=== PATIENT | female | born 1980 | race Hispanic/Latino ===

== ENCOUNTER 2018-05-21 19:42 | Emergency (ER) | payer SELFPAY ==
[2018-05-21 20:33] LABS: Urine Blood TRACE (NEG); Urine Glucose NEGATIVE (NEG); Urine Protein NEGATIVE (NEG); Urine pH 5.5 (5.0-7.0)
[2018-05-21] MEDS ORDERED: MAGNE/ALUM HYDROXD 30 ML UCUP ONE (21:56)
[2018-05-21] MEDS ORDERED: LIDOCAINE VISCOUS 2% SOLN 15 ML UDC ONE (21:57)
--- NOTE | 2018-05-21 22:11 | ER ---
Nurse's Notes [facility] Name: Angelic Valentine Age: 37 yrs Sex: Female : 1980 Arrival Date: 05/21/2018 Time: 19:43 Bed 30 Private MD: Diagnosis: Gastritis, unspecified Presentation: 05/21 19:58 Presenting complaint: Patient states: Epigastric pain that started 2 days ago, pt ea reports it feels like pressure. Transition of care: patient was not received from another setting of care. Onset of symptoms. Risk Assessment: Do you want to hurt yourself or someone else? Patient reports no desire to harm self or others. Initial Sepsis Screen: Does the patient meet any 2 criteria? No. Patient's initial sepsis screen is negative. Does the patient have a suspected source of infection? No. Patient's initial sepsis screen is negative. Care prior to arrival: None. 19:58 Method Of Arrival: Ambulatory ea 19:58 Acuity: CARA 3 ea Triage Assessment: 20:01 General: Appears uncomfortable, Behavior is calm, cooperative, appropriate for age. ea Pain: Complains of pain in epigastric area. Neuro: Level of Consciousness is awake, alert, obeys commands, Oriented to person, place, time, situation. Cardiovascular: Patient's skin is warm and dry. Respiratory: Airway is patent Respiratory effort is even, unlabored, Respiratory pattern is regular, symmetrical. 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 - Social history:: Smoking status: Patient/guardian denies using tobacco. - Ebola Screening: : No symptoms or risks identified at this time. - Family history:: not pertinent. Screenin:08 Abuse screen: Denies threats or abuse. Nutritional screening: No deficits noted. tl3 Tuberculosis screening: No symptoms or risk factors identified. Fall Risk None identified. Assessment: 20:08 General: Appears uncomfortable, well groomed, well developed, well nourished, Behavior tl3 is calm, cooperative, appropriate for age. Neuro: Level of Consciousness is awake, alert, obeys commands, Oriented to person, place, time, situation, Appropriate for age. Cardiovascular: Patient's skin is warm and dry. Rhythm is sinus rhythm. Respiratory: Airway is patent Respiratory effort is even, unlabored, Respiratory pattern is regular, symmetrical. GI: No signs and/or symptoms were reported involving the gastrointestinal system. : No signs and/or symptoms were reported regarding the genitourinary system. 20:14 Pain: Complains of pain in abdomen and epigastric area Pain does not radiate. Pain tl3 began 1 day ago. 20:50 Reassessment: Patient appears in no apparent distress at this time. No changes from tl3 previously documented assessment. Patient and/or family updated on plan of care and expected duration. Pain level reassessed. Patient is alert, oriented x 3, equal unlabored respirations, skin warm/dry/pink. no needs at this time. 22:22 Reassessment: Patient appears in no apparent distress at this time. No changes from tl3 previously documented assessment. Patient and/or family updated on plan of care and expected duration. Pain level reassessed. Patient is alert, oriented x 3, equal unlabored respirations, skin warm/dry/pink. pt being discharged. Vital Signs: 19:59 BP 118 / 69; Pulse 79; Resp 19; Temp 98.7(O); Pulse Ox 100% on R/A; Weight 71.21 kg; ea Height 5 ft. 2 in. (157.48 cm); Pain 7/10; 20:50 BP 101 / 71; Pulse 73; Resp 18; Pulse Ox 100% on R/A; tl3 22:22 BP 112 / 70; Pulse 64; Resp 18; Pulse Ox 100% on R/A; tl3 19:59 Body Mass Index 28.72 (71.21 kg, 157.48 cm) ea ED Course: 19:43 Patient arrived in ED. am2 19:54 Hannah Leslie, RN is Primary Nurse. tl3 19:59 Triage completed. ea 20:02 Arm band placed on right wrist. Patient placed in an exam room, on a stretcher, on ea pulse oximetry. 20:08 Patient has correct armband on for positive identification. Placed in gown. Bed in low tl3 position. monitoring and evaluation advisor on. Pulse ox on. 20:08 No provider procedures requiring assistance completed. Patient maintains SpO2 tl3 saturation greater than 95% on room air. 20:13 Warm blanket given. Pillow given. NIBP on. jp3 20:13 EKG done, by ED staff, reviewed by Hannah Leslie RN. jp3 21:11 Shani Hernandez MD is Attending Physician. ma2 22:22 Patient did not have IV access during this emergency room visit. tl3 Administered Medications: 21:50 Drug: GI Cocktail without - (Maalox Suspension 30 ml, Lidocaine Liquid 2 % 15 aj1 ml) Route: PO; 22:23 Follow up: Response: No adverse reaction; Pain is decreased tl3 Outcome: 22:11 Discharge ordered by . ma2 22:22 Discharged to home ambulatory. tl3 22:22 Condition: stable 22:22 Discharge instructions given to patient, family, Instructed on discharge instructions, follow up and referral plans. Demonstrated understanding of instructions, follow-up care, medications, Prescriptions given X 1. 22:24 Patient left the ED. tl3 Signatures: Gema Staples, RN RN aj1 Elisabeth Riggs am2 Jayashree Del Rio RN Shani Bill ea, MD MD ma2 Lowrey, Tammy RN RN tl3 Robert Berry jp3
--- NOTE | 2018-05-21 22:12 | EDPHYS ---
Physician Documentation [facility] Name: Angelic Valentine Age: 37 yrs Sex: Female : 1980 Arrival Date: 05/21/2018 Time: 19:43 Bed 30 Private MD: ED Physician Shani Hernandez HPI: 05/21 22:00 This 37 yrs old Female presents to ER via Ambulatory with complaints of Chest ma2 Pain, Epigastric Pain. 22:00 The patient or guardian reports chest pain that is located primarily in the epigastric ma2 area. Associated signs and symptoms: Pertinent negatives: None. diaphoresis, headache, lightheadedness, vomiting. The chest pain is described as burning. Duration: The patient or guardian reports multiple episodes. Severity of pain: At its worst the pain was very mild in the emergency department the pain has resolved. 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 - Social history:: Smoking status: Patient/guardian denies using tobacco. - Ebola Screening: : No symptoms or risks identified at this time. - Family history:: not pertinent. ROS: 22:08 Constitutional: Negative for fever, chills, and weight loss. ma2 22:08 Abdomen/GI: Positive for abdominal pain, Negative for nausea, vomiting, and diarrhea, constipation, abdominal distension, rectal bleeding, flatulence. 22:08 All other systems are negative. Exam: 22:08 Constitutional: This is a well developed, well nourished patient who is awake, alert, ma2 and in no acute distress. ENT: Nares patent. No nasal discharge, no septal abnormalities noted. Tympanic membranes are normal and external auditory canals are clear. Oropharynx with no redness, swelling, or masses, exudates, or evidence of obstruction, uvula midline. Mucous membranes moist. Chest/axilla: Normal chest wall appearance and motion. Nontender with no deformity. No lesions are appreciated. Cardiovascular: Regular rate and rhythm with a normal S1 and S2. No gallops, murmurs, or rubs. Normal PMI, no JVD. No pulse deficits. Respiratory: Lungs have equal breath sounds bilaterally, clear to auscultation and percussion. No rales, rhonchi or wheezes noted. No increased work of breathing, no retractions or nasal flaring. Abdomen/GI: Soft, non-tender, with normal bowel sounds. No distension or tympany. No guarding or rebound. No evidence of tenderness throughout. Back: No spinal tenderness. No costovertebral tenderness. Full range of motion. MS/ Extremity: Pulses equal, no cyanosis. Neurovascular intact. Full, normal range of motion. Neuro: Awake and alert, GCS 15, oriented to person, place, time, and situation. Cranial nerves II-XII grossly intact. Motor strength 5/5 in all extremities. Sensory grossly intact. Cerebellar exam normal. Normal gait. Vital Signs: 19:59 BP 118 / 69; Pulse 79; Resp 19; Temp 98.7(O); Pulse Ox 100% on R/A; Weight 71.21 kg; ea Height 5 ft. 2 in. (157.48 cm); Pain 7/10; 20:50 BP 101 / 71; Pulse 73; Resp 18; Pulse Ox 100% on R/A; tl3 22:22 BP 112 / 70; Pulse 64; Resp 18; Pulse Ox 100% on R/A; tl3 19:59 Body Mass Index 28.72 (71.21 kg, 157.48 cm) ea MDM: 21:11 Patient medically screened. ma2 22:08 Differential diagnosis: esophagitis, gastritis, gastroesophageal reflux disease (GERD), ma2 uti. DIONNE Risk Score: not applicable. Data reviewed: vital signs, nurses notes. Counseling: I had a detailed discussion with the patient and/or guardian regarding: the historical points, exam findings, and any diagnostic results supporting the discharge/admit diagnosis, the presence of at least one elevated blood pressure reading (>120/80) during this emergency department visit, the need for outpatient follow up. 22:11 Response to treatment: the patient's symptoms have markedly improved after treatment. ma2 05/21 20:15 Order name: Urine Dipstick--Ancillary (enter results); Complete Time: 22:09 mw2 05/21 20:15 Order name: Urine --Ancillary (enter results); Complete Time: 22:09 mw2 Administered Medications: 21:50 Drug: GI Cocktail without - (Maalox Suspension 30 ml, Lidocaine Liquid 2 % 15 aj1 ml) Route: PO; 22:23 Follow up: Response: No adverse reaction; Pain is decreased tl3 Disposition: 05/21/18 22:11 Discharged to Home. Impression: Gastritis, unspecified. - Condition is Stable. - Discharge Instructions: Gastritis, Adult. - Prescriptions for Pepcid 20 mg Oral Tablet - take 1 tablet by ORAL route every 12 hours for 10 days; 20 tablet. - Medication Reconciliation Form, Thank You Letter, Antibiotic Education, Prescription Opioid Use form. - Follow up: Private Physician; When: Tomorrow; Reason: Continuance of care. Signatures: Dispatcher [employer] EDGema Jackman RN RN aj1 Jayashree Del Rio RN Shani Bill ea, MD MD ma2 Hannah Leslie RN RN tl3 Corrections: (The following items were deleted from the chart) 22:24 22:11 05/21/2018 22:11 Discharged to Home. Impression: Gastritis, unspecified. tl3 Condition is Stable. Forms are Medication Reconciliation Form, Thank You Letter, Antibiotic Education, Prescription Opioid Use. Follow up: Private Physician; When: Tomorrow; Reason: Continuance of care. ma2
--- NOTE | 2018-05-22 14:48 | EKG ---
Test Date: 2018-05-21 Test Time: 20:05:49 Agile Qa Tester: RORY MEASUREMENT RESULTS: Intervals: Rate: 75 NV: 126 QRSD: 74 QT: 382 QTc: 426 Sedan: P: 43 NV: 126 QRS: 36 T: 44 INTERPRETIVE STATEMENTS: Normal sinus rhythm Normal ECG No previous ECG available for comparison Electronically Signed On 05-22-18 14:45:32 WRAPPER REWINDER by Porter Ceron
== END 2018-05-21 22:24 | disposition home or self-care (01) ==
LOC: ER 19:42
DX: K29.70 Gastritis, unspecified, without bleeding (principal); Z3A.08 8 weeks gestation of pregnancy
CPT/HCPCS: 81003; 81025; 93005; 99285

== ENCOUNTER 2018-06-02 20:27 | Emergency (ER) | payer OTHER ==
--- NOTE | 2018-06-02 22:47 | EDPHYS ---
Physician Documentation [facility] Name: Angelic Valentine Age: 37 yrs Sex: Female : 1980 Arrival Date: 06/02/2018 Time: 20:33 Bed 23 Private MD: ED Physician Ganesh Layne HPI: 06/03 06:57 This 37 yrs old Female presents to ER via Ambulatory with complaints of Cough, tw4 Fever, Headache, Ear Pain, 10 wks preg. 06:57 The patient or guardian reports cough. Onset: The symptoms/episode began/occurred tw4 today. Severity of symptoms: At their worst the symptoms were moderate, in the emergency department the symptoms are unchanged. Modifying factors: The symptoms are alleviated by nothing, the symptoms are aggravated by nothing. The patient has not experienced similar symptoms in the past. PRIMARY CARE PROVIDER: 06/02 21:01 LMP 03/22/2018 tl2 Historical: - Allergies: 21:01 No Known Allergies; tl2 - Home Meds: 21:01 None [Active]; tl2 - PMHx: 21:01 None; tl2 - PSHx: 21:01 ; tl2 - Immunization history:: Adult Immunizations up to date. - Social history:: Smoking status: Patient/guardian denies using tobacco. - Ebola Screening: : No symptoms or risks identified at this time. ROS: 06/03 06:57 Constitutional: Negative for fever, chills, and weight loss, Eyes: Negative for injury, tw4 pain, redness, and discharge, Cardiovascular: Negative for chest pain, palpitations, and edema. Abdomen/GI: Negative for abdominal pain, nausea, vomiting, diarrhea, and constipation, Back: Negative for injury and pain, MS/Extremity: Negative for injury and deformity, Skin: Negative for injury, rash, and discoloration, Neuro: Negative for headache, weakness, numbness, tingling, and seizure. ENT: Positive for ear pain. Respiratory: Positive for cough. Exam: 06:57 Constitutional: This is a well developed, well nourished patient who is awake, alert, tw4 and in no acute distress. Head/Face: Normocephalic, atraumatic. Chest/axilla: Normal chest wall appearance and motion. Nontender with no deformity. No lesions are appreciated. Cardiovascular: Regular rate and rhythm with a normal S1 and S2. No gallops, murmurs, or rubs. Normal PMI, no JVD. No pulse deficits. Respiratory: Lungs have equal breath sounds bilaterally, clear to auscultation and percussion. No rales, rhonchi or wheezes noted. No increased work of breathing, no retractions or nasal flaring. Abdomen/GI: Soft, non-tender, with normal bowel sounds. No distension or tympany. No guarding or rebound. No evidence of tenderness throughout. MS/ Extremity: Pulses equal, no cyanosis. Neurovascular intact. Full, normal range of motion. Neuro: Awake and alert, GCS 15, oriented to person, place, time, and situation. Cranial nerves II-XII grossly intact. Motor strength 5/5 in all extremities. Sensory grossly intact. Cerebellar exam normal. Normal gait. Vital Signs: 06/02 21:01 BP 108 / 52; Pulse 79; Resp 18; Temp 98.3(O); Pulse Ox 99% on R/A; Weight 74.84 kg; tl2 Height 5 ft. 2 in. (157.48 cm); Pain 06/03; 21:01 Body Mass Index 30.18 (74.84 kg, 157.48 cm) tl2 MDM: 21:00 Patient medically screened. tw4 06/03 06:58 Data reviewed: vital signs, nurses notes. Data interpreted: Pulse oximetry: tw4 Interpretation: normal. Counseling: I had a detailed discussion with the patient and/or guardian regarding: the historical points, exam findings, and any diagnostic results supporting the discharge/admit diagnosis. Counseling: I had a detailed discussion with the patient and/or guardian regarding: lab results. Special discussion: I discussed with the patient/guardian in detail that at this point there is no indication for admission to the hospital. It is understood, however, that if the symptoms persist or worsen the patient needs to return immediately for re-evaluation. 06/02 21:20 Order name: Flu tw4 06/02 21:20 Order name: Strep tw4 06/02 22:08 Order name: Throat Culture EDMS Administered Medications: 06/02 22:55 Drug: Tamiflu 75 mg Route: PO; la1 22:55 Follow up: Response: Medication administered at discharge. la1 Disposition: 06/02/18 22:46 Discharged to Home. Impression: Influenza due to identified novel influenza A virus. - Condition is Stable. - Discharge Instructions: Influenza, Adult, Cough, Adult. - Prescriptions for Tamiflu 75 mg Oral Capsule - take 1 tablet by ORAL route every 12 hours for 5 days; 10 tablet. - Medication Reconciliation Form, Thank You Letter, Antibiotic Education, Prescription Opioid Use form. - Follow up: Private Physician; When: Upon discharge from the Emergency Department; Reason: If symptoms return, Recheck today's complaints, Continuance of care. Signatures: Dispatcher [employer] EDMS Donaldo Perez RN RN la1 Mary Thornton RN RN tl2 Ganesh Layne MD MD tw4 Corrections: (The following items were deleted from the chart) 22:55 22:46 06/02/2018 22:46 Discharged to Home. Impression: Influenza due to identified la1 novel influenza A virus. Condition is Stable. Forms are Medication Reconciliation Form, Thank You Letter, Antibiotic Education, Prescription Opioid Use. Follow up: Private Physician; When: Upon discharge from the Emergency Department; Reason: If symptoms return, Recheck today's complaints, Continuance of care. tw4
--- NOTE | 2018-06-02 22:47 | ER ---
Nurse's Notes [facility] Name: Angelic Valentine Age: 37 yrs Sex: Female : 1980 Arrival Date: 06/02/2018 Time: 20:33 Bed 23 Private MD: Diagnosis: Influenza due to identified novel influenza A virus Presentation: 06/02 20:59 Presenting complaint: Patient states: Tested negative for flu on Monday after tl2 tested positive. Symptoms got worse yesterday and today developed fever and headache. Took tylenol at 5 pm today for temp of 100.6. Pt is 10 weeks . Transition of care: patient was not received from another setting of care. Onset of symptoms was May 29, 2018. Risk Assessment: Do you want to hurt yourself or someone else? Patient reports no desire to harm self or others. Initial Sepsis Screen: Does the patient meet any 2 criteria? No. Patient's initial sepsis screen is negative. Does the patient have a suspected source of infection? No. Patient's initial sepsis screen is negative. Care prior to arrival: Medication(s) given: Tylenol, 325 mg. 20:59 Method Of Arrival: Ambulatory tl2 20:59 Acuity: CARA 4 tl2 Triage Assessment: 21:01 Headache History: Denies prior headaches. General: Appears in no apparent distress. tl2 uncomfortable, Behavior is calm, cooperative, appropriate for age. Pain: Complains of pain in headache. Neuro: Level of Consciousness is awake, alert, obeys commands. 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 - Social history:: Smoking status: Patient/guardian denies using tobacco. - Ebola Screening: : No symptoms or risks identified at this time. Screenin:02 Abuse screen: Denies threats or abuse. Nutritional screening: No deficits noted. tl2 Tuberculosis screening: No symptoms or risk factors identified. Fall Risk None identified. Assessment: 21:27 General: Appears in no apparent distress. Behavior is calm, cooperative. Neuro: Level la1 of Consciousness is awake, alert, obeys commands, Oriented to person, place, time, situation. Cardiovascular: Capillary refill < 3 seconds Patient's skin is warm and dry. Respiratory: Airway is patent Respiratory effort is even, unlabored, Respiratory pattern is regular, symmetrical. Respiratory: Reports cough that is. GI: No signs and/or symptoms were reported involving the gastrointestinal system. : No signs and/or symptoms were reported regarding the genitourinary system. 22:37 Reassessment: Patient appears in no apparent distress at this time. No changes from la1 previously documented assessment. Patient and/or family updated on plan of care and expected duration. Pain level reassessed. Patient is alert, oriented x 3, equal unlabored respirations, skin warm/dry/pink. Vital Signs: 21:01 BP 108 / 52; Pulse 79; Resp 18; Temp 98.3(O); Pulse Ox 99% on R/A; Weight 74.84 kg; tl2 Height 5 ft. 2 in. (157.48 cm); Pain 3/10; 21:01 Body Mass Index 30.18 (74.84 kg, 157.48 cm) tl2 ED Course: 20:33 Patient arrived in ED. es 21:00 Ganesh Layne MD is Attending Physician. tw4 21:01 Triage completed. tl2 21:01 Arm band placed on right wrist. tl2 21:02 Patient has correct armband on for positive identification. Bed in low position. Call tl2 light in reach. Side rails up X 1. Adult w/ patient. 21:18 Donaldo Perez, RN is Primary Nurse. la1 21:27 No provider procedures requiring assistance completed. Flu and/or RSV swab sent to lab. la1 Strep swab sent to lab. 22:55 Patient did not have IV access during this emergency room visit. la1 Administered Medications: 22:55 Drug: Tamiflu 75 mg Route: PO; la1 22:55 Follow up: Response: Medication administered at discharge. la1 Outcome: 22:46 Discharge ordered by . tw4 22:55 Discharged to home ambulatory. la1 22:55 Condition: stable 22:55 Discharge instructions given to patient, Instructed on discharge instructions, follow up and referral plans. medication usage, Demonstrated understanding of instructions, follow-up care, medications, Prescriptions given X 1. 22:55 Patient left the ED. la1 Signatures: Janny Solis Lee RN RN la1 Mary Thornton RN RN tl2 Gaensh Layne MD MD tw4
[2018-06-02] MEDS ORDERED: OSELTAMIVIR 75 MG CAP ONE (23:00)
== END 2018-06-02 22:55 | disposition home or self-care (01) ==
LOC: ER 20:27
DX: J10.1 Influenza due to other identified influenza virus with other respiratory manifestations (principal)
CPT/HCPCS: 87070; 87081; 87804; 99283